=== PATIENT | male | born 1950 | race Caucasian/White ===

== ENCOUNTER → 2017-06-29 | Day surgery (SDC) | payer OTHER ==
[~2017-06-29] MED LIST: PROPOFOL 200 MG/20 ML VIAL As Ordered
[2017-06-29] MEDS: NS 1,000 ML IV (07:11)
== END | disposition home or self-care (01) ==
LOC: M OPP 06:44
DX: Z12.11 Encounter for screening for malignant neoplasm of colon (principal); D12.2 Benign neoplasm of ascending colon; I10 Essential (primary) hypertension; I25.10 Atherosclerotic heart disease of native coronary artery without angina pectoris; E78.5 Hyperlipidemia, unspecified; E66.9 Obesity, unspecified; Z95.5 Presence of coronary angioplasty implant and graft; Z79.82 Long term (current) use of aspirin; Z79.899 Other long term (current) drug therapy; Z87.891 Personal history of nicotine dependence
CPT/HCPCS: 45385

== ENCOUNTER 2018-04-11 11:53 | Emergency (ER) | payer OTHER ==
[~2018-04-11] VITALS: Ht 172.7 cm; Wt 100.0 kg
[~2018-04-11 11:53] MED LIST changes: +AMLO10TA5; +ASPI1TAB PO; +LISI-538; +METO1TAB7; -PROPOFOL 200 MG/20 ML VIAL As Ordered; +ROSU10TA5
[2018-04-11] MEDS ORDERED: ISOS30TA4 (12:03)
[2018-04-11] MEDS ORDERED: LOSA50TA88 PO (12:03)
[2018-04-11 12:50] LABS: BASO # 0.1 10^3/uL (0.0-0.2); BASO % 1.1 % (0.0-1.0); EOS # 0.1 10^3/uL (0.0-0.50); EOS % 1.6 % (0.0-3.0); HEMATOCRIT 44.1 % (42.0-52.0); HEMOGLOBIN 14.6 g/dl (13.5-17.5); LYMPH # 2.3 10^3/uL (1.5-4.5); LYMPH % 26.4 % (24.0-44.0); MEAN CORPUSCULAR HEMOGLOBIN 30.2 pg (27.0-33.0); MEAN CORPUSCULAR HGB CONC 33.1 g/dl (32.0-36.5); MEAN CORPUSCULAR VOLUME 91.3 fl (80.0-96.0); MONO # 0.7 10^3/uL (0.0-0.8); MONO % 8.2 % (0.0-5.0); NEUTROPHILS # 5.5 10^3/uL (1.8-7.7); PLATELET COUNT, AUTOMATED 326 10^3/uL (150-450); RED BLOOD COUNT 4.83 10^6/uL (4.30-6.10); WHITE BLOOD COUNT 8.8 10^3/uL (4.0-10.0)
[2018-04-11 12:59] LABS: ALBUMIN 3.6 GM/DL (3.2-5.2); ALT/SGPT 52 U/L (12-78); BILIRUBIN,DIRECT 0.2 MG/DL (0.0-0.2); BILIRUBIN,TOTAL 0.7 MG/DL (0.2-1.0); BLOOD UREA NITROGEN 14 MG/DL (7-18); CALCIUM LEVEL 8.5 MG/DL (8.8-10.2); CARBON DIOXIDE LEVEL 26 MEQ/L (21-32); CHLORIDE LEVEL 107 MEQ/L (98-107); CPK CREATINE PHOSPHOKINASE 232 U/L (39-308); CREATININE FOR GFR 1.11 MG/DL (0.70-1.30); GLOMERULAR FILTRATION RATE > 60.0 (>49); GLUCOSE, FASTING 118 MG/DL (70-100); MB/CK RELATIVE INDEX 0.43 (< OR =4); NT-PRO BNP 100 PG/ML (<125); POTASSIUM SERUM 4.1 MEQ/L (3.5-5.1); SODIUM LEVEL 140 MEQ/L (136-145); TOTAL PROTEIN 6.8 GM/DL (6.4-8.2); TROPONIN I < 0.02 NG/ML (< 0.10)
[2018-04-11 13:13] LABS: INR 0.98
[2018-04-11 13:14] LABS: PARTIAL THROMBOPLASTIN TIME 26.8 SECONDS (25.4-37.6)
--- NOTE | 2018-04-11 13:25 | REP ---
Portable chest x-ray: Single view. History: Chest pain. Comparison chest x-ray: May 10, 2011. Findings: The lungs are symmetrically aerated and free of infiltrate. Pleural angles are sharp. There is some pleural thickening along the left lateral chest wall which is a new finding from the 2012 prior study. No rib fracture or other skeletal lesion is evident. Pulmonary vasculature is not increased. The aorta somewhat tortuous. Heart size is normal. Impression: No active cardiopulmonary disease. Benign appearing pleural thickening along the left lateral chest wall. Electronically Signed by Mayank Marie MD 04/11/2018 05:15 P
[2018-04-11 16:05] LABS: CPK CREATINE PHOSPHOKINASE 545 U/L (39-308); MB/CK RELATIVE INDEX 0.18 (< OR =4); TROPONIN I < 0.02 NG/ML (< 0.10)
[2018-04-11 16:56] VITALS: BP 145/86
--- NOTE | 2018-04-11 17:52 | ECGEPIP ---
Stationary ECG Study [facility] [place] - ED Test Date: 2018-04-11 Pat Name: KENDRA LAUREANO Department: Room: - Gender: M [employer] 1950 Requested By: Srinivas Lewis Order Number: [id number] Reading MD: Ofe Muñiz Measurements Intervals [place] Rate: 75 P: 68 NM: 170 QRS: 27 QRSD: 102 T: 51 QT: 389 QTc: 436 Interpretive Statements SINUS RHYTHM NONSPECIFIC ST & T-WAVE ABNORMALITY COMPARED 05/10/11 Electronically Signed On 04-11-2018 17:52:49 EST by Ofe Muñiz
== END 2018-04-11 16:57 | disposition home or self-care (01) ==
LOC: M ED 11:53
DX: I10 Essential (primary) hypertension (principal); Z87.891 Personal history of nicotine dependence

== ENCOUNTER → 2020-02-28 | Outpatient (CLI) | payer MEDICARE ==
[~2020-02-28] MED LIST changes: -AMLO10TA5; +AMLO1TAB25; -ASPI1TAB PO; +ASPI81TA26 PO; +ISOS30TA4; +LOSA50TA88 PO; -ROSU10TA5; +ROSU10TA6
--- NOTE | 2020-02-29 15:37 | ECGEPIP ---
[facility] Test Date: 2020-02-28 Pat Name: KENDRA LAUREANO Department: Room: - Gender: Male [employer] Clerk: EUFEMIA : 1950 Requested By: Elsa Rodriguez Order Number: [id number] Reading MD: Tee Gomez Measurements Intervals [place] Rate: 59 P: 55 TX: 174 QRS: 37 QRSD: 92 T: 51 QT: 421 QTc: 419 Interpretive Statements SINUS BRADYCARDIA Nonspecific ST-T abnormalities. No significant change compared with 04/11/2018. Electronically Signed on 02-29-2020 15:37:22 EST by Tee Gomez
== END ==
LOC: M EKG 09:29
PROVIDERS: ATTEND Internal Medicine Cardiovascular Disease
DX: I50.32 Chronic diastolic (congestive) heart failure (principal)

== ENCOUNTER → 2020-03-24 | Outpatient (REF) | payer MEDICARE ==
[2020-03-25 08:08] LABS: LDL DIRECT 46 mg/dL (0-99)
== END ==
LOC: M LAB REF 12:09
PROVIDERS: ATTEND Family Medicine
DX: E78.2 Mixed hyperlipidemia (principal); I47.2 Ventricular tachycardia; I50.32 Chronic diastolic (congestive) heart failure

== ENCOUNTER → 2021-02-10 | Outpatient (CLI) | payer MEDICARE ==
[~2021-02-10] MED LIST changes: +ISOS1TAB35; -ISOS30TA4; -LISI-538; +LISI20TA33
--- NOTE | 2021-02-10 09:42 | REP ---
INDICATION: AAA SCREENING COMPARISON: None. TECHNIQUE: Multiple ultrasonographic images of the abdominal aorta were obtained from the level of the celiac access to the aortoiliac bifurcation and the longitudinal and transverse scan planes along with color Doppler imaging. FINDINGS: The maximal AP dimension of the abdominal aorta as measured in the longitudinal scan plane is 2 cm. There is no common iliac arterial ectasia. IMPRESSION: No evidence of abdominal aortic aneurysm. <Electronically signed by Doug Jackson > 02/10/21 [id number]
== END ==
LOC: M RAD 08:36
PROVIDERS: ATTEND Family Medicine
DX: Z13.6 Encounter for screening for cardiovascular disorders (principal)

== ENCOUNTER → 2021-04-15 | Outpatient (REF) | payer MEDICARE ==
[~2021-04-15] MED LIST changes: +LOSA50TA28 PO; -LOSA50TA88 PO
[2021-04-16 08:09] LABS: LDL DIRECT 39 mg/dL (0-99)
== END ==
LOC: M LAB REF 11:54
PROVIDERS: ATTEND Family Medicine
DX: I50.32 Chronic diastolic (congestive) heart failure (principal)

== ENCOUNTER → 2021-06-07 | Outpatient (REF) | payer MEDICARE ==
[2021-06-07 13:13] LABS: APPEARANCE, URINE HAZY (CLEAR); BACTERIA, URINE AUTO 1+ (NEGATIVE); BILIRUBIN, URINE AUTO NEGATIVE (NEGATIVE); BLOOD, URINE BLOOD 3+ (NEGATIVE); COLOR, URINE YELLOW (YELLOW); GLUCOSE, URINE (UA) AUTO NEGATIVE (NEGATIVE); KETONE, URINE AUTO NEGATIVE (NEGATIVE); LEUKOCYTE ESTERASE, URINE AUTO NEGATIVE (NEGATIVE); MUCUS, URINE SMALL (NEGATIVE); NITRITE, URINE AUTO NEGATIVE (NEGATIVE); PROTEIN, URINE AUTO 1+ mg/dL (NEGATIVE); RBC, URINE AUTO 159 /HPF (0-3); SPECIFIC GRAVITY URINE AUTO 1.014 (1.002-1.035); SQUAMOUS EPITHELIAL CELL UR AU 0 /HPF (0-6); UROBILINOGEN, URINE AUTO 0.2 mg/dL (0.0-2.0); WBC, URINE AUTO 9 /HPF (0-3)
== END ==
LOC: M LAB REF 12:12
PROVIDERS: ATTEND Family Medicine
DX: Z01.812 Encounter for preprocedural laboratory examination (principal); Z79.899 Other long term (current) drug therapy

== ENCOUNTER 2024-01-30 10:07 | Day surgery (SDC) | payer MEDICARE ==
[~2024-01-30] VITALS: Ht 172.7 cm; Wt 96.4 kg
[~2024-01-30 10:07] MED LIST changes: +NS 250 ML IV ONE; -ROSU10TA6; +ROSU10TA61 PO
[2024-01-30] MEDS ORDERED: propofoL 500 MG/50 ML VIAL As Ordered ONE (10:54)
[2024-01-30] MEDS ORDERED: dexmedeTOMIDine (4MCG/ML)200MCG/50ML BTL (PRECEDEX) As Ordered ONE (10:54)
[2024-01-30 11:23] VITALS: BP 124/58; TEMP 97.8; O2SAT 96
== END 2024-01-30 11:30 | disposition home or self-care (01) ==
LOC: M OPP 10:07
PROVIDERS: ATTEND Surgery
DX: Z12.11 Encounter for screening for malignant neoplasm of colon (principal); Z86.0100 Personal history of colon polyps, unspecified; I10 Essential (primary) hypertension; E78.5 Hyperlipidemia, unspecified; Z85.51 Personal history of malignant neoplasm of bladder; I25.2 Old myocardial infarction; Z79.82 Long term (current) use of aspirin; Z79.899 Other long term (current) drug therapy